=== PATIENT | female | born 1980 | race Two or more races ===

== ENCOUNTER 2017-05-10 08:46 | Emergency (ER) | payer MEDICAID ==
[~2017-05-10] VITALS: Ht 170.2 cm; Wt 70.3 kg
[2017-05-10 09:16] VITALS: BP 121/80
== END 2017-05-10 12:06 | disposition home or self-care (01) ==
LOC: ER 08:46
DX: O20.0 Threatened abortion (principal); Z3A.01 Less than 8 weeks gestation of pregnancy
CPT/HCPCS: 36415; 76801; 81002; 84702

== ENCOUNTER 2017-05-23 08:04 | Emergency (ER) | payer MEDICAID ==
[~2017-05-23] VITALS: Ht 170.2 cm; Wt 72.6 kg
[2017-05-23 08:26] VITALS: BP 115/68
[2017-05-23] MEDS ORDERED: ACETAMINOPHEN 325 MG TAB PO ONE (10:00)
== END 2017-05-23 10:00 | disposition home or self-care (01) ==
LOC: ER 08:04
DX: O20.0 Threatened abortion (principal); Z3A.01 Less than 8 weeks gestation of pregnancy
CPT/HCPCS: 36415; 76801; 81002; 84702